=== PATIENT | male | born 1960 | race Caucasian/White ===

== ENCOUNTER → 2016-10-16 | Outpatient (CLI) | payer BC ==
--- NOTE | 2016-10-16 13:15 | KCIC ---
Targeted ultrasound of the right neck HISTORY: Right neck lipoma. FINDINGS: Targeted ultrasound performed in the area of concern. Echogenic mass identified in the area of concern, measures 6.3 cm x 4.9 cm x 1.8 cm. No significant associated hypervascularity. No fluid collection. IMPRESSION: Right neck subcutaneous mass is nonspecific but sonographically compatible with a lipoma. CT or MR evaluation could provide more definitive diagnosis. Electronically signed by: Jeffery Eller MD (10/16/2016 1:12 PM) [id number]
== END | disposition home or self-care (01) ==
LOC: KCIC US 12:07
PROVIDERS: ATTEND Family Medicine
DX: D17.0 Benign lipomatous neoplasm of skin and subcutaneous tissue of head, face and neck (principal)
CPT/HCPCS: 76536